=== PATIENT | male | born 1965 | race African-American/Black ===

== ENCOUNTER → 2020-08-08 | Outpatient (CLI) | payer MEDICARE ==
--- NOTE | 2020-08-08 10:29 | Diagnostic Imaging Report ---
EXAMINATION: CT abdomen without intravenous contrast. TECHNIQUE: Multiple contiguous axial images were obtained through the abdomen without the administration of intravenous contrast. All CT scans use one or more of the following dose optimizing techniques: automated exposure control, MA and/or KvP adjustment based on patient size and exam type or iterative reconstruction. HISTORY: CHRONIC PANCREATITIS COMPARISON: None available. FINDINGS: Lung bases: The lung bases are clear. Solid organs: There is a mildly nodular contour of the liver with heterogeneous attenuation. Evaluation for focal liver lesions is limited without IV contrast. The gallbladder is normal. There is no biliary ductal dilation. There is a full appearance of the pancreatic head without proximal atrophy or ductal dilatation. No significant peripancreatic stranding. Evaluation for focal pancreatic lesion is limited without IV contrast. Spleen is normal. Adrenal glands are normal. There is a nonobstructing 0.3 cm left renal calculus. No hydronephrosis. Bowel: No bowel obstruction. Peritoneum: There is no intraperitoneal free fluid or free air. There are multiple prominent retroperitoneal lymph nodes with the largest measuring 1.9 x 1.2 cm anterior to the pancreas (series 2, image 37). Vasculature: Calcification of the aorta without aneurysm. Musculoskeletal: Degenerative changes of the spine without suspicious osseous lesion or compression fracture. IMPRESSION: 1. Ill-defined fullness of the pancreatic head. Although this finding could be seen with pancreatitis, a dedicated MRI of the abdomen with IV contrast pancreatic protocol would be helpful to exclude an underlying pancreatic lesion which would be difficult to see on a noncontrast CT. 2. Prominent retroperitoneal lymph nodes are nonspecific. 3. Nodular morphology and heterogeneous attenuation of the liver which can be seen with fibrosis or cirrhosis. Dictated by: Dictated on workstation # [id number]
== END ==
LOC: RAD FS 09:58
PROVIDERS: ATTEND Pediatrics
DX: K86.1 Other chronic pancreatitis (principal)
CPT/HCPCS: 74150

== ENCOUNTER → 2020-08-22 | Outpatient (CLI) | payer MEDICARE ==
[~2020-08-22] MED LIST: GADOBUTROL 10 MMOL/10 ML (GADAVIST) VIAL IV ONE
--- NOTE | 2020-08-22 11:57 | Diagnostic Imaging Report ---
EXAMINATION: MRI of the abdomen with and without contrast. TECHNIQUE: Multiplanar, multisequence MR images of the abdomen were obtained with and without intravenous contrast. HISTORY: Pancreatic lesion evaluation. COMPARISON: CT abdomen from 08/08/2020. FINDINGS: Liver: The liver is smooth in contour. There is mild loss of signal on [id number] images, suggestive of hepatic steatosis. There is a 1.1 cm T1/T2 isointense, arterial enhancing focus within hepatic segment VII. There is mild persistent enhancement on the portal venous phase but enhancement resolves on delayed images. The portal and hepatic veins are patent. Gallbladder and Bile Ducts: There is no intrahepatic or extrahepatic bile duct dilation. There are no filling defects in the gallbladder or common bile duct. Pancreas: The pancreas is normal in volume, signal intensity and enhancement. There is no dilation of the main pancreatic duct. No focal pancreatic mass is seen. Kidneys: There is no hydronephrosis. Adrenal glands: There is no adrenal gland nodule or thickening. Spleen: The spleen is normal in size without focal lesion. Lymph Nodes: There is no suspicious lymphadenopathy. Other: There is no ascites. IMPRESSION: 1. Stable appearance of the pancreas without suspicious mass. No other secondary findings to suggest a pancreatic head lesion. 2. A 1.1 cm enhancing focus within hepatic segment VII is indeterminate and could represent a flash-fill hemangioma, adenoma, or focal nodular hyperplasia. Differential consideration could include transient hepatic intensity difference. Consider MRI follow-up in one year with Eovist IV contrast. 3. Mild hepatic steatosis. Dictated by: Dictated on workstation # [id number]
== END ==
LOC: RAD 09:31
PROVIDERS: ATTEND Pediatrics
DX: K86.1 Other chronic pancreatitis (principal); K76.0 Fatty (change of) liver, not elsewhere classified; R93.5 Abnormal findings on diagnostic imaging of other abdominal regions, including retroperitoneum
CPT/HCPCS: 74183